=== PATIENT | male | born 1995 | race Caucasian/White ===

== ENCOUNTER 2017-09-25 12:40 | Emergency (ER) | payer MEDICAID ==
[~2017-09-25] VITALS: Ht 167.6 cm; Wt 68.0 kg
[2017-09-25 12:59] VITALS: Ht 167.6 cm; Wt 68.0 kg
[2017-09-25 16:16] VITALS: BP 134/83
== END 2017-09-25 16:16 | disposition home or self-care (01) ==
LOC: ED 12:40
DX: K59.00 Constipation, unspecified (principal)